=== PATIENT | male | born 1945 | race Caucasian/White ===

== ENCOUNTER 2024-06-19 00:39 | Inpatient (IN) | payer MEDICARE, OTHER ==
[2024-06-19] VITALS (17 sets, daily range): BP systolic 102–138; BP diastolic 63–89; PULSE 83–108; RESP 12–20; TEMP 98–99; O2SAT 95–99
[~2024-06-19] VITALS: Ht 175.3 cm; Wt 90.7 kg
[~2024-06-19 00:39] MED LIST: ASPIRIN PO; AVODART0.5 MG PO; CINNAMON PO; FLAX SEED OIL PO; GLUCOSAMINE CH1 EAC2 PO; KRILL OIL500 MG PO; METFORMIN HCL500 MG PO; PROBIOTIC COMP1 EACH PO; TAMSULOSIN HCL0.4 MG PO; VITAMIN B12 PO; VITAMIN C PO; VITAMIN D35000 UNI1 PO; [UNRECOGNIZED DRUG - REMARK]
[2024-06-19] MEDS: IBUPROFEN 600 MG TAB PO STA (00:54)
[2024-06-19 00:59] LABS: BASOPHILS % 0.3 % (0.0-1.0); EOSINOPHILS % 0.1 % (0.0-6.0); HEMATOCRIT 42.4 % (38.2-49.6); LYMPHOCYTES # (AUTO) 0.8 (1.0-3.2); LYMPHOCYTES % 5.8 % (18.0-39.1); MEAN CORPUSCULAR HEMOGLOBIN 31.3 pg (28-32); MEAN CORPUSCULAR VOLUME 94.9 fL (81-99); MONOCYTES # (AUTO) 1.2 (0.2-0.8); MONOCYTES % 8.3 % (4.4-11.3); NEUTROPHILS # (AUTO) 12.2 (2.1-6.9); NEUTROPHILS % 85.2 % (38.7-80.0); PLATELET COUNT 190 x10e3/uL (140-360); RED BLOOD COUNT 4.47 x10e6/uL (4.3-5.7); RED CELL DISTRIBUTION WIDTH 13.9 % (11.7-14.4)
[2024-06-19 01:22] LABS: ALBUMIN 4.2 g/dL (3.5-5.0); ALBUMIN/GLOBULIN RATIO 1.2 (0.8-2.0); ANION GAP 18.4 mmol/L (8-16); BILIRUBIN,TOTAL 0.8 mg/dL (0.2-1.2); CALCIUM 9.5 mg/dL (8.4-10.2); CREATININE, SERUM 1.11 mg/dL (0.72-1.25); POTASSIUM 4.4 mmol/L (3.5-5.1); TOTAL PROTEIN 7.6 g/dL (6.5-8.1)
[2024-06-19] MEDS: FUROSEMIDE INJ 10 MG/ML 4 ML VIAL IV ONE (02:11)
[2024-06-19] MEDS ORDERED: DEXTROSE 50% SYRINGE 50 ML IV PRN (02:15)
[2024-06-19] MEDS ORDERED: SODIUM CHLORIDE FLUSH 10 ML SYR INJ PRN (02:15)
[2024-06-19] MEDS ORDERED: ACETAMINOPHEN 325 MG TAB PO PRN (02:15)
[2024-06-19] MEDS ORDERED: GLIPIZIDE5 MG PO (03:43)
[2024-06-19] MEDS: INSULIN REGULAR, HUMAN 100 UNIT/1 ML SQ SCH (07:30)
[2024-06-19 10:08] LABS: TROPONIN I 0.881 ng/mL (0-0.300)
[2024-06-19] MEDS ORDERED: ONDANSETRON HCL INJ 2MG/ML 2ML 2 MG/ML VIAL IV PRN (10:45)
[2024-06-19] MEDS ORDERED: FUROSEMIDE INJ 10 MG/ML 4 ML VIAL IV SCH (11:15)
[2024-06-19] MEDS ORDERED: LIDOCAINE HCL 2% LOCAL 20 ML VIAL ONE (11:48)
[2024-06-19] MEDS ORDERED: VERAPAMIL HCL 2.5 MG/ML 2 ML VIAL ONE (11:48)
[2024-06-19] MEDS ORDERED: IOPAMIDOL 370 MG/ML 100 ML INFUS..BTL INJ ONE (11:48)
[2024-06-19] MEDS ORDERED: HEPARIN SOD/SOD CHLORIDE 2,000 ML ONE (11:48)
[2024-06-19] MEDS ORDERED: NITROGLYCERIN/D5W 200 MCG/ML 250 ML ONE (11:49)
[2024-06-19] MEDS ORDERED: SODIUM CHLORIDE 0.9% 1000ML 1,000 ML ONE (11:49)
[2024-06-19] MEDS: FUROSEMIDE INJ 10 MG/ML 2 ML VIAL IV ONE (11:52)
[2024-06-19] MEDS ORDERED: SODIUM CHLORIDE 0.9% 1000ML 1,000 ML IV SCH ×2 (12:00→13:30)
[2024-06-19] MEDS ORDERED: MIDAZOLAM HCL 2 MG/2 ML VIAL ONE (12:03)
[2024-06-19] MEDS ORDERED: FENTANYL CITRATE/PF 100MCG/2 ML INJ ONE (12:03)
[2024-06-19] MEDS: ALBUTEROL/IPRATROPIUM 3 ML NEB NEB SCH (13:32)
[2024-06-19] MEDS: FENTANYL CITRATE/PF 100MCG/2 ML INJ ONE (15:51)
[2024-06-19] MEDS ORDERED: HEPARIN 25,000 UNIT/D5W 250ML 250 ML IV ONE (16:19)
[2024-06-19] MEDS: HEPARIN SOD (PORCINE) 1000 UNIT/ML 30ML ONE (16:22)
[2024-06-19] MEDS ORDERED: GLIPIZIDE 5 MG TAB PO SCH (17:00)
[2024-06-20] MEDS ORDERED: DUTASTERIDE 0.5 MG CAP PO SCH (09:00)
[2024-06-20] MEDS ORDERED: ASPIRIN 81 MG CHEW TAB PO SCH (09:00)
[2024-06-20] MEDS ORDERED: TAMSULOSIN HCL 0.4 MG CAP PO SCH (09:00)
== END 2024-06-19 19:20 | disposition short-term general hospital (02) | DRG 270 ==
LOC: ER 00:45 → ERHOLD 02:09 → MED/SURG3 03:19 → ICU 17:26
PROVIDERS: ADMIT Internal Medicine; ATTEND Internal Medicine
PROC: 4A023N7 Measurement of Cardiac Sampling and Pressure, Left Heart, Percutaneous Approach (ICD-10-PCS; principal; 2024-06-19)
PROC: 5A02210 Assistance with Cardiac Output using Balloon Pump, Continuous (ICD-10-PCS; 2024-06-19)
PROC: B2111ZZ Fluoroscopy of Multiple Coronary Arteries using Low Osmolar Contrast (ICD-10-PCS; 2024-06-19)
PROC: B2151ZZ Fluoroscopy of Left Heart using Low Osmolar Contrast (ICD-10-PCS; 2024-06-19)
PROC: B3181ZZ Fluoroscopy of Bilateral Internal Carotid Arteries using Low Osmolar Contrast (ICD-10-PCS; 2024-06-19)
DX: I21.4 Non-ST elevation (NSTEMI) myocardial infarction (principal); I50.21 Acute systolic (congestive) heart failure; R57.0 Cardiogenic shock; I11.0 Hypertensive heart disease with heart failure; I25.10 Atherosclerotic heart disease of native coronary artery without angina pectoris; I65.23 Occlusion and stenosis of bilateral carotid arteries; I25.5 Ischemic cardiomyopathy; J44.9 Chronic obstructive pulmonary disease, unspecified; F17.290 Nicotine dependence, other tobacco product, uncomplicated; E11.9 Type 2 diabetes mellitus without complications; Z79.84 Long term (current) use of oral hypoglycemic drugs; R00.0 Tachycardia, unspecified; N40.0 Benign prostatic hyperplasia without lower urinary tract symptoms; Z11.52 Encounter for screening for COVID-19; Z79.899 Other long term (current) drug therapy; Z79.82 Long term (current) use of aspirin; Z71.81 Spiritual or religious counseling
CPT/HCPCS: 33970; 36415; 71045; 80053; 82550; 82948; 83605; 83880; 84484; 85025; 87040; 93005; 93306; 93458; 94760; 94799; 99152; 99153; 99284; C1766; C1887; C2630; J0696; J1644; J1940; J2001; J2250; J7030; J7050; Q9967; U0002